=== PATIENT | male | born 1980 | race Caucasian/White ===

== ENCOUNTER 2023-04-29 13:20 | Emergency (ER) | payer SELFPAY ==
[2023-04-29] MEDS ORDERED: LIDOCAINE 1% 10 ML VIAL PERC ONE (13:30)
[2023-04-29] MEDS ORDERED: CEPH-558 PO (15:28)
[2023-04-29] MEDS ORDERED: IBUP-1492 PO (15:29)
[2023-04-29] MEDS ORDERED: NEOMYCIN/BACITRACIN/POLYMYXIN B OINTMENT PACKET TP ONE (15:30)
[2023-04-29] MEDS ORDERED: BACI28.410 TP (15:31)
[2023-04-29 15:38] VITALS: BP 133/81; PULSE 80; RESP 18
== END 2023-04-29 15:55 | disposition home or self-care (01) ==
LOC: EMS 13:20
DX: S61.412A Laceration without foreign body of left hand, initial encounter (principal); X58.XXXA Exposure to other specified factors, initial encounter; Y93.89 Activity, other specified; Y92.89 Other specified places as the place of occurrence of the external cause; Y99.8 Other external cause status
CPT/HCPCS: 99283; 73130; J3490